=== PATIENT | female | born 1985 | race Caucasian/White ===

== ENCOUNTER 2022-04-08 07:35 | Observation (INO) | payer BC ==
[~2022-04-08] VITALS: Ht 165.1 cm; Wt 70.0 kg
[2022-04-08] VITALS (18 sets, daily range): BP systolic 107–144; BP diastolic 52–102
[2022-04-08 08:15] LABS: BASOPHILS # (AUTO) 0.1 X10'3 (0-0.2); BASOPHILS % (AUTO) 1.1 % (0-1); EOSINOPHILS # (AUTO) 0.2 X10'3 (0-0.9); EOSINOPHILS % (AUTO) 2.5 % (0-6); HEMATOCRIT 43.5 % (35.0-45.0); HEMOGLOBIN 14.6 g/dl (12.0-16.0); LYMPHOCYTES # (AUTO) 1.6 X10'3 (1.1-4.8); LYMPHOCYTES % (AUTO) 17.1 % (21-51); MEAN CORPUSCULAR HEMOGLOBIN 29.4 PG (27.0-31.0); MEAN CORPUSCULAR HGB CONC 33.7 g/dL (33.0-36.5); MEAN CORPUSCULAR VOLUME 87.4 FL (78-98); MEAN PLATELET VOLUME 7.7 FL (7.4-10.4); MONOCYTES # (AUTO) 0.7 X10'3 (0-0.9); MONOCYTES % (AUTO) 7.1 % (2-12); NEUTROPHILS # (AUTO) 6.8 X10'3 (1.8-7.7); NEUTROPHILS % (AUTO) 72.2 % (42-75); PLATELET COUNT 246 X10'3 (140-440); RED BLOOD COUNT 4.97 X10'6 (4.20-5.60); RED CELL DISTRIBUTION WIDTH 12.9 % (11.5-14.5); WHITE BLOOD COUNT 9.4 X10'3 (4.5-11.0)
[2022-04-08 08:15] LABS: URINE HCG NEGATIVE (NEG)
[2022-04-08 08:16] LABS: CLARITY,URINE CLEAR (Clear); COLOR,URINE YELLOW (Yellow); GLUCOSE, URINE NEGATIVE (Neg); KETONES,URINE NEGATIVE (Neg); LEUKOCYTE ESTERASE ,URINE NEGATIVE (Neg); NITRITES, URINE NEGATIVE (Neg); OCCULT BLOOD,URINE TRACE-INTACT (Neg); PROTEIN,URINE NEGATIVE (Neg); UROBILINOGEN,URINE 0.2 E.U/dL (0.2-1.0)
[2022-04-08 08:21] LABS: UA COLLECTION TYPE CLN CATCH MIDSTREAM
[2022-04-08 08:22] LABS: BACTERIA,URINE NONE SEEN /HPF (Neg); MUCUS STRANDS NONE SEEN /LPF (Neg); RBC,URINE 0-2 /HPF (0-2); SQUAMOUS EPITHELIAL CELL,UR FEW /LPF (FEW); WBC,URINE NONE SEEN /HPF (0-4)
[2022-04-08 08:31] LABS: ALBUMIN 3.4 G/DL (3.4-5.0); ANION GAP 6 (8-16); ASPARTATE AMINO TRANSFERASE 18 U/L (10-37); BILIRUBIN,TOTAL 0.3 MG/DL (0.1-1.0); BLOOD UREA NITROGEN 11 MG/DL (7-18); CHLORIDE 108 MMOL/L (99-107); CREATININE 0.92 MG/DL (0.40-0.90); GLUCOSE 108 MG/DL (70-104); POTASSIUM 4.3 MMOL/L (3.5-5.1); SODIUM 139 MMOL/L (135-145); TOTAL CARBON DIOXIDE 24.9 MMOL/L (24-32); TOTAL PROTEIN 6.7 G/DL (6.4-8.2); eGFR 69 ML/MIN
[2022-04-08 08:32] LABS: ALANINE AMINOTRANSFERASE 13 U/L (12-78); ALKALINE PHOSPHATASE 154 IU/L (46-116); LIPASE 142 U/L (73-393)
[2022-04-08] MEDS ORDERED: BUPR-94 PO (11:33)
[2022-04-08] MEDS ORDERED: TRAZ-251 PO (11:33)
[2022-04-08] MEDS ORDERED: LAMO150T2 PO (11:33)
[2022-04-08] MEDS ORDERED: normal saline 1000ML IV soln IVB ONE (12:00)
[2022-04-08] MEDS ORDERED: piperacillin/tazo 3.375gm/50ml 50 ML IV ONE (12:00)
[2022-04-08] MEDS ORDERED: acetaminophen 325mg tablet PO PRN (13:15)
[2022-04-08] MEDS ORDERED: potassium Cl 20 mEq SR tablet PO PRN ×2 (13:15)
[2022-04-08] MEDS ORDERED: morphine 2 MG/ML inj. syringe IV PRN ×3 (13:15→14:20)
[2022-04-08] MEDS ORDERED: magnesium Cl slow-release 64mg tablet PO PRN (13:15)
[2022-04-08] MEDS ORDERED: magnesium 4gm in 100ml NS 100 ML IV PRN (13:15)
[2022-04-08] MEDS ORDERED: ondansetron/PF 4mg/2ml inj IV PRN ×2 (13:15→14:20)
[2022-04-08] MEDS ORDERED: mag hydrox/Alum hydrox/simeth 30ml oral suspension PO PRN (13:15)
[2022-04-08] MEDS ORDERED: magnesium hydroxide 30ml (MOM) UD suspension PO PRN (13:15)
[2022-04-08] MEDS ORDERED: potassium Cl 40MEQ/1/2NS 520ml 520 ML IV PRN (13:15)
[2022-04-08 13:26] LABS: MAGNESIUM 1.8 MG/DL (1.5-2.4)
[2022-04-08] MEDS ORDERED: INDOCYANINE GREEN 25 MG/10 ML VIAL IV ONE (13:35)
--- NOTE | 2022-04-08 13:47 | NUR ---
Called pharmacy,will deliver medication to ed.
[2022-04-08] MEDS ORDERED: ringers solution, lacted 1,000 ML IV SCH (14:20)
[2022-04-08] MEDS ORDERED: morphine 4 MG/ML inj SYRINge IV PRN (14:20)
[2022-04-08] MEDS ORDERED: meperidine/PF 25mg/ml syringe IV PRN ×3 (14:20)
[2022-04-08] MEDS ORDERED: proCHLORperazine 10 MG/2 ml inj IV PRN (14:20)
[2022-04-08] MEDS ORDERED: midazolam 1 mg/ML 2ml injection ONE (14:32)
[2022-04-08] MEDS ORDERED: FENTANYL CITRATE/PF 50 MCG/1 ML VIAL ONE (14:32)
[2022-04-08] MEDS ORDERED: LIDOcaine 1% 30ml preserv. free vial ONE (14:44)
[2022-04-08] MEDS ORDERED: BUPIVAcaine 0.5% inj/PF 30 ML ONE (14:44)
[2022-04-08] MEDS ORDERED: propofol inj 20 ML IV ONE (14:45)
[2022-04-08] MEDS ORDERED: rocuronium 10mg/ml inj IV ONE (14:45)
[2022-04-08] MEDS ORDERED: dexamethasone sod phosphate 4mg/ml inj. ONE (14:46)
[2022-04-08] MEDS ORDERED: ceFAZolin 1000mg inj ONE ×2 (14:47)
[2022-04-08] MEDS ORDERED: ondansetron/PF 4mg/2ml inj ONE (15:17)
[2022-04-08] MEDS ORDERED: sugammadex 200mg/2ml injection IV ONE (15:21)
[2022-04-08] MEDS ORDERED: HYDROcodone/acetaminophen 5mg/325mg tablet PO PRN (15:35)
[2022-04-08] MEDS ORDERED: naloxone 0.4 mg/ml inj IV PRN (15:35)
--- NOTE | 2022-04-08 15:38 | NUR ---
Received from OR via HOSPITAL BED, accompanied by Anesthesiologist DR BREEN and report given by Anesthesiolgist. PT PRESENTS WITH PIV 20G LEFT HAND, ABD DRESSING W/BANDAIDS SUSAN, VSS. Addendum: 04/08/22 at 1551 by Yue Rueda RN, RN Amended: Links added.
[2022-04-08] MEDS: normal saline 1000ml 1,000 ML IV SCH ×2 (16:56→23:15)
--- NOTE | 2022-04-08 16:58 | NUR ---
Report called to receiving nurse TESSA HENDRIX. Transferred via HOSPITAL BED TO ROOM 346B. BED IN LOW LOCKED POSITION WITH CALL LIGHT IN REACH, PT HOOKED UP TO VITALS MACHINE. Belonging, ONE PT BELONGING BAG WITH GLASSES TAKEN TO ROOM 346B WITH PT. PT'S CHART GIVEN TO TESSA HENDRIX AT BEDSIDE. Special Issues communicated to receiving nurse. Addendum: 04/08/22 at 1715 by Yue Rueda RN, RN Amended: Links added.
--- NOTE | 2022-04-08 17:10 | NUR ---
Patient arrived to floor. VSS. no compalints. lap site x4 with bandaids CDI. no complaints.
--- NOTE | 2022-04-08 18:10 | NUR ---
Problems reprioritized. Patient report given, questions answered & plan of care reviewed with RUMA Dominguez.
--- NOTE | 2022-04-08 18:30 | NUR ---
Patient in room [facility]. I have received report from RUMA Encarnacion and had the opportunity to ask questions and assume patient care. Pt amb in [facility]. Addendum: 04/08/22 at 2152 by Gregg Burgess RN Amended: Links added.
[2022-04-08] MEDS: K and/or MAG REPLACEMENT MC SCH (19:44)
[2022-04-08] MEDS: HYDROcodone/acetaminophen 10/325mg tab PO PRN (19:48)
[2022-04-08] MEDS: docusate sod 100mg capsule PO SCH (19:48)
[2022-04-08] MEDS ORDERED: buPROPion SR 150mg tablet PO ONE (19:55)
[2022-04-08] MEDS ORDERED: lamoTRIgine 25mg tablet PO ONE (19:55)
[2022-04-08] MEDS ORDERED: lamoTRIgine 25mg tablet PO SCH (20:26)
[2022-04-08] MEDS: lamoTRIgine 100mg tablet PO SCH ×2 (20:45→21:00)
[2022-04-08] MEDS ORDERED: traZODone 50mg tablet PO SCH (21:00)
[2022-04-09 02:30] VITALS: BP 104/64
[2022-04-09] MEDS: HYDROcodone/acetaminophen 10/325mg tab PO PRN (04:20)
[2022-04-09 05:01] LABS: BASOPHILS % (AUTO) 0.1 % (0-1); EOSINOPHILS % (AUTO) 0 % (0-6); HEMOGLOBIN 13.8 g/dl (12.0-16.0); LYMPHOCYTES # (AUTO) 0.9 X10'3 (1.1-4.8); LYMPHOCYTES % (AUTO) 7.1 % (21-51); MEAN CORPUSCULAR HEMOGLOBIN 28.8 PG (27.0-31.0); MEAN CORPUSCULAR VOLUME 87.4 FL (78-98); MEAN PLATELET VOLUME 8.4 FL (7.4-10.4); MONOCYTES # (AUTO) 0.4 X10'3 (0-0.9); MONOCYTES % (AUTO) 3.4 % (2-12); NEUTROPHILS # (AUTO) 11.4 X10'3 (1.8-7.7); NEUTROPHILS % (AUTO) 89.4 % (42-75); PLATELET COUNT 232 X10'3 (140-440); RED BLOOD COUNT 4.81 X10'6 (4.20-5.60); RED CELL DISTRIBUTION WIDTH 12.9 % (11.5-14.5); WHITE BLOOD COUNT 12.7 X10'3 (4.5-11.0)
[2022-04-09 05:10] LABS: ALANINE AMINOTRANSFERASE 37 U/L (12-78); ALKALINE PHOSPHATASE 103 IU/L (46-116); ANION GAP 7 (8-16); ASPARTATE AMINO TRANSFERASE 34 U/L (10-37); BILIRUBIN,TOTAL 0.5 MG/DL (0.1-1.0); BLOOD UREA NITROGEN 8 MG/DL (7-18); BUN/CREATININE RATIO 11.6 (6.6-38.0); CALCIUM 8.3 MG/DL (8.5-10.1); CHLORIDE 106 MMOL/L (99-107); CREATININE 0.69 MG/DL (0.40-0.90); GLUCOSE 137 MG/DL (70-104); MAGNESIUM 1.7 MG/DL (1.5-2.4); POTASSIUM 4.1 MMOL/L (3.5-5.1); SODIUM 138 MMOL/L (135-145); TOTAL PROTEIN 6.1 G/DL (6.4-8.2); eGFR > 90 ML/MIN
[2022-04-09 06:00] VITALS: BP 100/58
--- NOTE | 2022-04-09 06:36 | NUR ---
Patient in room [facility] 346. I have received report from RUMA Dominguez and had the opportunity to ask questions and assume patient care.
--- NOTE | 2022-04-09 06:45 | NUR ---
Problems reprioritized. Patient report given, questions answered & plan of care reviewed with RUMA Castillo. Addendum: 04/09/22 at 0645 by Gregg Burgess RN Amended: Links added.
[2022-04-09] MEDS: K and/or MAG REPLACEMENT MC SCH (08:00)
[2022-04-09] MEDS ORDERED: buPROPion SR 150mg tablet PO SCH (08:00)
[2022-04-09] MEDS: docusate sod 100mg capsule PO SCH (09:07)
[2022-04-09] MEDS: normal saline 1000ml 1,000 ML IV SCH (09:15)
[2022-04-09] MEDS ORDERED: HYDR-3965 PO (11:28)
--- NOTE | 2022-04-09 11:58 | NUR ---
Patient discharge home with spouse. Discharge information was review and script for [place] was handed to patient. Patient verbalize understanding of discharge and was assisted to personal vehicle with all belongings.
== END 2022-04-09 11:50 | disposition home or self-care (01) ==
LOC: ER 07:36 → ED HOLD 13:15 → SUR 3N 17:10
PROVIDERS: ADMIT Family Medicine; ATTEND Family Medicine
DX: K80.00 Calculus of gallbladder with acute cholecystitis without obstruction (principal); Z20.822 Contact with and (suspected) exposure to COVID-19; I47.1 Supraventricular tachycardia; F41.8 Other specified anxiety disorders; Z79.899 Other long term (current) drug therapy
CPT/HCPCS: 36415; 47563; 76700; 80053; 81001; 81025; 83690; 83735; 85025; 87081; 87811; 96365; 96375; 99284; G0378; J0690; J1100; J2175; J2250; J2405; J2543; J2704; J3010; J3490; J7030; J7120; S0020; S2900; 74300

== ENCOUNTER 2022-12-10 07:54 | Emergency (ER) | payer BC ==
[~2022-12-10] VITALS: Ht 165.1 cm; Wt 72.7 kg
[~2022-12-10 07:54] MED LIST: BUPR-94 PO; LAMO150T2 PO; TRAZ-251 PO
[2022-12-10 08:43] VITALS: BP 128/87; PULSE 117; O2SAT 96
[2022-12-10] MEDS ORDERED: dexamethasone sod phosphate 10mg/ml inj IM STA (10:37)
[2022-12-10] MEDS ORDERED: HYDROcodone/acetaminophen 10/325mg tab PO ONE (10:40)
[2022-12-10 10:44] VITALS: RESP 16
[2022-12-10] MEDS ORDERED: HYDR-3973 PO (11:30)
== END 2022-12-10 11:46 | disposition home or self-care (01) ==
LOC: ER 07:54
DX: M54.50 Low back pain, unspecified (principal); Z88.1 Allergy status to other antibiotic agents; Z79.899 Other long term (current) drug therapy
CPT/HCPCS: 96372; 99284; J1100; 99283